=== PATIENT | female | born 1980 | race Hispanic/Latino ===

== ENCOUNTER 2017-09-14 16:47 | Emergency (ER) | payer MEDICARE ==
[2017-09-14 17:34] LABS: #Basophils 0.1 thou/uL (0.0-0.2); #Eosinphils 0.3 thou/uL (0.0-0.7); #Lymphocytes 2.5 thou/uL (1.20-3.40); #Neutrophils 8.2 thou/uL (1.40-6.50); %Basophils 0.7 % (0.0-1.0); %Eosinophils 2.6 % (0.0-10.0); %Lymphocytes 20.4 % (21.0-51.0); %Monocytes 8.1 % (0.0-10.0); %Neutrophils 68.2 % (42.0-75.0); Hemoglobin 9.3 g/dL (12.0-16.0); Mean Corpuscular HGB CONC 32.5 g/dL (32.0-36.0); Mean Corpuscular Hemoglobin 27.6 pg (27.0-31.0); Mean Corpuscular Volume 85.1 fl (81.0-99.0); Mean Platelet Volume 7.8 fL (7.4-10.4); Platelet Count 225 thou/uL (130-400); Red Blood Cell (RBC) Count 3.38 mill/uL (4.20-5.40); White Blood Cell (WBC) Count 12.1 thou/uL (4.8-10.8)
[2017-09-14 17:53] LABS: ALT (SGPT) 10 U/L (8-55); AST (SGOT) 12 U/L (5-34); Albumin 3.8 g/dL (3.5-5.0); Alkaline Phosphatase 209 U/L (40-150); Anion Gap 16 mmol/L (10-20); Bilirubin, Total 0.3 mg/dL (0.2-1.2); Calc. Creatinine Clearance 0 mL/min (70-130); Calcium 8.2 mg/dL (7.8-10.44); Carbon Dioxide 26 mmol/L (22-29); Chloride 98 mmol/L (98-107); Estimated GFR-MDRD 3; Globulin 3.1 g/dL (2.4-3.5); Glucose 82 mg/dL (70-105); Magnesium 2.3 mg/dL (1.6-2.6); Potassium 3.4 mmol/L (3.5-5.1); Protein, Total 6.9 g/dL (6.0-8.3); Sodium 137 mmol/L (136-145)
[2017-09-14 18:17] LABS: BUN (Urea Nitrogen) 36 mg/dL (7.0-18.7)
== END 2017-09-14 19:01 | disposition home or self-care (01) ==
LOC: ERS 16:47
DX: R79.89 Other specified abnormal findings of blood chemistry (principal); Z79.899 Other long term (current) drug therapy
CPT/HCPCS: 80053; 83735; 85025; 93005

== ENCOUNTER 2018-09-28 12:02 | Emergency (ER) | payer MEDICARE, MEDICAID ==
[2018-09-28] MEDS ORDERED: Iopamidol 370 76% 50 ML VIAL FS ONE (13:06)
[2018-09-28] MEDS ORDERED: Dicyclomine 20 MG TAB ONE (13:29)
[2018-09-28 13:46] LABS: #Basophils 0.1 thou/uL (0.0-0.2); #Eosinphils 0.5 thou/uL (0.0-0.7); #Lymphocytes 1.6 thou/uL (1.20-3.40); #Monocytes 0.7 thou/uL (0.11-0.59); #Neutrophils 8.5 thou/uL (1.40-6.50); %Basophils 0.6 % (0.0-1.0); %Eosinophils 4.3 % (0.0-10.0); %Lymphocytes 14.4 % (21.0-51.0); %Monocytes 5.9 % (0.0-10.0); %Neutrophils 74.9 % (42.0-75.0); Mean Corpuscular HGB CONC 32.9 g/dL (32.0-36.0); Mean Corpuscular Hemoglobin 28.6 pg (27.0-31.0); Mean Platelet Volume 7.1 fL (7.4-10.4); Platelet Count 289 thou/uL (130-400); RBC Distribution Width 15.3 % (11.5-14.5); Red Blood Cell (RBC) Count 4.19 mill/uL (4.20-5.40); White Blood Cell (WBC) Count 11.3 thou/uL (4.8-10.8)
[2018-09-28 13:58] LABS: Bilirubin Negative (Negative); Blood, Urine Moderate (Negative); Clarity CLOUDY (Clear); Glucose, Urine (Dipstick) Negative (Negative); Leukocyte Negative (Negative); Nitrite Negative (Negative); Protein, Urine (Dipstick) 300 mg/dL (Neg-Trace); Specific Gravity, Urine 1.013 (1.002-1.036); Urobilinogen 0.2 mg/dL (0.2-1.0); pH, Urine 6.5 (5.0-9.0)
[2018-09-28 14:00] LABS: Bacteria/HPF 1+ HPF (None Seen)
[2018-09-28 14:02] LABS: Pathc Cast-AUWi Flag 5.03 (0-2.49)
[2018-09-28 14:10] LABS: ALT (SGPT) 15 U/L (8-55); AST (SGOT) 14 U/L (5-34); Albumin 4.1 g/dL (3.5-5.0); Alkaline Phosphatase 278 U/L (40-150); Anion Gap 21 mmol/L (10-20); BUN (Urea Nitrogen) 34 mg/dL (7.0-18.7); Bilirubin, Total 0.4 mg/dL (0.2-1.2); Calc. Creatinine Clearance 0 mL/min (70-130); Calcium 9.2 mg/dL (7.8-10.44); Carbon Dioxide 26 mmol/L (22-29); Chloride 96 mmol/L (98-107); Estimated GFR-MDRD 2; Globulin 3.4 g/dL (2.4-3.5); Glucose 127 mg/dL (70-105); Lipase 84 U/L (8-78); Potassium 3.5 mmol/L (3.5-5.1); Protein, Total 7.5 g/dL (6.0-8.3); Sodium 139 mmol/L (136-145)
[2018-09-28 14:13] LABS: Hyaline Casts/LPF 0-3 HYALINE CAST LPF (0-3 Hyaline)
[2018-09-28 14:15] LABS: Renal Epithelial 0-3 HPF (0-3)
--- NOTE | 2018-09-28 16:52 | CT ---
ABDOMEN AND PELVIC CT SCAN WITHOUT IV CONTRAST: Comparison: 07-17-16 History: Left lower quadrant pain. Peroneal dialysis. FINDINGS: The lung bases appear to be clear. The visualized liver, gallbladder, pancreas, spleen, adrenal gland s are unremarkable as visualized. Status post left nephrectomy. Very small little traverse right kidney with m ild dilatation and multiple cysts. Minimal uterine enlargement, prior scan with contrast demonstrated a uterine fundal fibroid. Dilated left ovarian vein. No CT evidence for acute appendicitis. Minimal scattered ascites within the pelvis. Left sided peroneal dialysis catheter. Fat containing periumbili dasha hernia. Diffuse sclerosis of the bony skeleton, nonspecific, possible related to chronic renal di sease and dialysis. IMPRESSION: Left peroneal dialysis catheter with a small amount of acidic fluid in the pelvis. Status post left n ephrectomy. Tiny residual right little traverse kidney with slight dilatation of the upper collecting system a nd multiple low attenuation masses, but overall stable. Enlarged left ovarian vein. Periumbilical fat containing hernia. Diffuse bone sclerosis. Enlarged uterus. No other significant acute process. POS: [facility]
[2018-10-01 00:46] LABS: Chlamydia by PCR Not Detected (NotDetected); GC by PCR Not Detected (NotDetected)
== END 2018-09-28 16:44 | disposition home or self-care (01) ==
LOC: ERS 12:02
DX: R10.9 Unspecified abdominal pain (principal); N18.6 End stage renal disease; Z79.899 Other long term (current) drug therapy; N19 Unspecified kidney failure
CPT/HCPCS: 74176; 80053; 81003; 81015; 83605; 83690; 85025; 87077; 87086; 87480; 87491; 87510; 87591; 87660; Q9967

== ENCOUNTER 2019-09-23 21:51 | Emergency (ER) | payer MEDICAID, MEDICARE ==
[2019-09-23] MEDS ORDERED: Acetaminophen 500 MG TAB ONE (22:29)
== END 2019-09-23 22:56 | disposition home or self-care (01) ==
LOC: ERS 21:51
DX: J10.1 Influenza due to other identified influenza virus with other respiratory manifestations (principal); Z87.891 Personal history of nicotine dependence
CPT/HCPCS: 87804; 99283

== ENCOUNTER 2019-12-24 17:24 | Emergency (ER) | payer MEDICARE, OTHER ==
[2019-12-24] MEDS ORDERED: Acetaminophen 500 MG TAB ONE (17:37)
[2019-12-25 12:54] LABS: SARS-CoV-2 MS2 Positive; SARS-CoV-2 N Gene Negative; SARS-CoV-2 S Gene Negative; SARS-CoV-2 orf1ab Negative
== END 2019-12-24 18:09 | disposition home or self-care (01) ==
LOC: ERS 17:24
DX: Z20.828 Contact with and (suspected) exposure to other viral communicable diseases (principal); Z87.891 Personal history of nicotine dependence; Z79.82 Long term (current) use of aspirin; Z79.899 Other long term (current) drug therapy
CPT/HCPCS: 99283; U0003; 87635

== ENCOUNTER 2021-05-04 14:40 | Observation (INO) | payer MEDICARE ==
[2021-05-04 15:19] LABS: #Lymphocytes 0.9 thou/uL (1.20-3.40); #Monocytes 0.8 thou/uL (0.11-0.59); #Neutrophils 8.2 thou/uL (1.40-6.50); %Basophils 0.2 % (0.0-1.0); %Eosinophils 0.5 % (0.0-10.0); %Lymphocytes 8.6 % (21.0-51.0); %Neutrophils 82.8 % (42.0-75.0); Hemoglobin 6.8 g/dL (12.0-16.0); Mean Corpuscular HGB CONC 30.1 g/dL (32.0-36.0); Mean Corpuscular Hemoglobin 18.8 pg (27.0-31.0); Mean Corpuscular Volume 62.4 fL (78.0-98.0); Mean Platelet Volume 6.6 fL (7.4-10.4); Platelet Count 276 thou/uL (130-400); RBC Distribution Width 17.4 % (11.5-14.5); Red Blood Cell (RBC) Count 3.63 mill/uL (4.20-5.40); White Blood Cell (WBC) Count 9.8 thou/uL (4.8-10.8)
[2021-05-04 15:34] LABS: ALT (SGPT) 8 U/L (8-55); AST (SGOT) 9 U/L (5-34); Albumin 4.1 g/dL (3.5-5.0); Alkaline Phosphatase 61 U/L (40-110); Anion Gap 13 mmol/L (10-20); BUN (Urea Nitrogen) 14 mg/dL (7.0-18.7); Bilirubin, Total 0.2 mg/dL (0.2-1.2); Calc. Creatinine Clearance 0 mL/min (70-130); Calcium 9.4 mg/dL (7.8-10.44); Carbon Dioxide 22 mmol/L (22-29); Chloride 107 mmol/L (98-107); Globulin 2.6 g/dL (2.4-3.5); Glucose 164 mg/dL (70-105); Potassium 4.3 mmol/L (3.5-5.1); Protein, Total 6.7 g/dL (6.0-8.3); Sodium 138 mmol/L (136-145)
[2021-05-04 15:39] LABS: Anisocytosis SLIGHT = 6-15 cells (100X) (0-5/hpf); Hypochromia SLIGHT = 6-15 cells (100X) (0-5/hpf); MDiff Complete? YES; Microcytosis MODERATE=15-30 cells (100X) (0-5/hpf); Ovalocytes SLIGHT = 2-5 cells (100X) (0-1/hpf); Platelet Morphology Comment Appears Adequate; Polychromasia SLIGHT = 2-3 cells (100X) (0-2/hpf); Schistocytes SLIGHT = 2-5 cells (100X) (0-1/hpf); Tear Drops SLIGHT = 2-5 cells (100X) (0-1/hpf)
[2021-05-04] MEDS ORDERED: HYDROcodone/Acetaminophen 5/325 mg Tablet PO PRN (18:06)
[2021-05-04] MEDS ORDERED: Acetaminophen 325 MG TAB PO PRN (18:06)
[2021-05-04] MEDS ORDERED: Guaifenesin DM 100-10/5 ML UDCUP PO PRN (18:06)
[2021-05-04] MEDS ORDERED: Ondansetron PF 4 MG/2 ML Vial IVP PRN (18:06)
[2021-05-04] MEDS ORDERED: Bisacodyl 10 MG SUPP PR PRN (18:06)
[2021-05-04] MEDS ORDERED: Calcium Carbonate 500 MG ChewTAB PO PRN (18:06)
[2021-05-04] MEDS ORDERED: Senokot S 8.6-50 MG TAB PO PRN (18:06)
[2021-05-04 19:06] LABS: Iron 13 ug/dL (50-170); Iron Binding Capacity, Total 436 mcg/dL (265-497)
[2021-05-04] MEDS ORDERED: Tacrolimus 1 MG CAP PO SCH ×2 (21:00)
[2021-05-04 21:28] LABS: Ferritin 12.09 ng/mL (10-291)
[2021-05-04] MEDS: Famotidine 20 MG TAB PO SCH (22:36)
[2021-05-05 00:14] VITALS: BMI 28.8
[2021-05-05 05:04] LABS: Anion Gap 12 mmol/L (10-20); BUN (Urea Nitrogen) 15 mg/dL (7.0-18.7); Calc. Creatinine Clearance 101 mL/min (70-130); Calcium 9.5 mg/dL (7.8-10.44); Carbon Dioxide 23 mmol/L (22-29); Chloride 109 mmol/L (98-107); Glucose 131 mg/dL (70-105); Potassium 4.2 mmol/L (3.5-5.1); Sodium 140 mmol/L (136-145)
[2021-05-05 06:41] LABS: #Eosinphils 0.1 thou/uL (0.0-0.7); #Lymphocytes 1.3 thou/uL (1.20-3.40); #Monocytes 1.3 thou/uL (0.11-0.59); #Neutrophils 8.3 thou/uL (1.40-6.50); %Basophils 0.3 % (0.0-1.0); %Eosinophils 1.2 % (0.0-10.0); %Monocytes 11.5 % (0.0-10.0); Hemoglobin 8.2 g/dL (12.0-16.0); Mean Corpuscular HGB CONC 31.3 g/dL (32.0-36.0); Mean Corpuscular Hemoglobin 21.1 pg (27.0-31.0); Mean Corpuscular Volume 67.4 fL (78.0-98.0); Platelet Count 256 thou/uL (130-400); RBC Distribution Width 21.3 % (11.5-14.5); Red Blood Cell (RBC) Count 3.89 mill/uL (4.20-5.40)
[2021-05-05] MEDS ORDERED: Cepastat Lozenges 1 LOZ PO PRN (07:00)
[2021-05-05] MEDS ORDERED: Sodium Chloride 0.65% Nasal 44 ML BOT EA NARE PRN (07:00)
[2021-05-05] MEDS ORDERED: GUAIFENESIN SF SOLN 200 MG/10 ML UDCUP PO PRN (07:00)
[2021-05-05] MEDS ORDERED: Benzonatate 100 MG CAP PO PRN (07:00)
[2021-05-05] MEDS ORDERED: diphenhydrAMINE 25 MG CAP PO PRN (07:00)
[2021-05-05] MEDS ORDERED: Loratadine 10 MG TAB PO PRN (07:00)
[2021-05-05] MEDS ORDERED: Hydrocerin (Eucerin) Cream 120 gm Jar TOP PRN (07:00)
[2021-05-05] MEDS ORDERED: Zolpidem Tartrate 5 MG TAB PO PRN (07:00)
[2021-05-05] MEDS ORDERED: Artificial Tear Sol 15 ML BOT EA EYE PRN (07:00)
[2021-05-05] MEDS ORDERED: hydrALAZINE 20 MG/ML VIAL SLOW IVP PRN (07:00)
[2021-05-05] MEDS ORDERED: Loperamide HCl 2 MG CAP PO PRN (07:00)
[2021-05-05 07:04] LABS: Anisocytosis MODERATE=16-30 cells (100X) (0-5/hpf); MDiff Complete? YES
[2021-05-05] MEDS ORDERED: predniSONE 5 MG TAB PO SCH (08:00)
[2021-05-05] MEDS ORDERED: Tacrolimus 1 MG CAP PO SCH (09:00)
[2021-05-05] MEDS ORDERED: Iron, Sodium Ferric Gluconate 250 MG in Sodium Chloride 0.9% 250 ML 250 ML IVPB SCH (09:00)
[2021-05-05] MEDS: Famotidine 20 MG TAB PO SCH (09:06)
[2021-05-05 11:54] VITALS: BP 119/75; TEMP 97.3
[2021-05-05 12:10] LABS: SARS-CoV-2 PCR by NAA Not Detected (NotDetected)
== END 2021-05-05 15:14 | disposition home or self-care (01) ==
LOC: ERS 14:40 → ONC 18:06
PROVIDERS: ADMIT Internal Medicine; ATTEND Internal Medicine
DX: D50.0 Iron deficiency anemia secondary to blood loss (chronic) (principal); D25.9 Leiomyoma of uterus, unspecified; Z20.822 Contact with and (suspected) exposure to COVID-19; Z79.52 Long term (current) use of systemic steroids; Z79.899 Other long term (current) drug therapy; Z94.0 Kidney transplant status
CPT/HCPCS: 36430; 76856; 80048; 80053; 82607; 82728; 82746; 83540; 83550; 85025 ×2; 86850; 86900; 86901; 86920; 99285; P9016; U0003; U0005; 36415; 96374; G0378; J2916; J7050; J7507; J7512; J7517